=== PATIENT | male | born 1980 | race Caucasian/White ===

== ENCOUNTER 2021-03-09 14:54 | Emergency (ER) | payer BC ==
[~2021-03-09] VITALS: Ht 180.3 cm; Wt 97.7 kg
[2021-03-09 16:33] LABS: BASO # 0.1 10^3/uL (0.0-0.2); BASO % 0.9 % (0.0-1.0); EOS # 0.4 10^3/uL (0.0-0.5); EOS % 4.2 % (0.0-3.0); HEMATOCRIT 47.8 % (42.0-52.0); HEMOGLOBIN 16.6 g/dl (13.5-17.5); LYMPH # 2.7 10^3/uL (1.5-5.0); LYMPH % 29.1 % (24.0-44.0); MEAN CORPUSCULAR HEMOGLOBIN 30.9 pg (27.0-33.0); MEAN CORPUSCULAR HGB CONC 34.7 g/dl (32.0-36.5); MONO # 0.8 10^3/uL (0.0-0.8); MONO % 8.5 % (2.0-8.0); NEUTROPHILS # 5.2 10^3/uL (1.5-8.5); NEUTROPHILS % 56.9 % (36.0-66.0); PLATELET COUNT, AUTOMATED 284 10^3/uL (150-450); RED BLOOD COUNT 5.37 10^6/uL (4.30-6.10); WHITE BLOOD COUNT 9.2 10^3/uL (4.0-10.0)
[2021-03-09] MEDS ORDERED: GI COCKTAIL 50ML BTL(HYOSCYAMINE/MAALOX/LIDOCAINE VISCOUS)(1:3:1) PO ONE (16:45)
[2021-03-09 16:59] LABS: ALBUMIN 4.6 GM/DL (3.2-5.2); ALT/SGPT 42 U/L (12-78); BILIRUBIN,DIRECT 0.1 MG/DL (0.0-0.2); BILIRUBIN,TOTAL 0.5 MG/DL (0.2-1.0); BLOOD UREA NITROGEN 17 MG/DL (7-18); CALCIUM LEVEL 8.7 MG/DL (8.5-10.1); CARBON DIOXIDE LEVEL 26 MEQ/L (21-32); CHLORIDE LEVEL 108 MEQ/L (98-107); CREATININE FOR GFR 0.97 MG/DL (0.70-1.30); GLOMERULAR FILTRATION RATE > 60.0 (>60); GLUCOSE, FASTING 87 MG/DL (70-100); LIPASE 202 U/L (73-393); POTASSIUM SERUM 4.8 MEQ/L (3.5-5.1); SODIUM LEVEL 139 MEQ/L (136-145); TOTAL PROTEIN 7.9 GM/DL (6.4-8.2)
[2021-03-09] MEDS ORDERED: LISI10TA22 PO (17:27)
--- NOTE | 2021-03-09 17:27 | REP ---
INDICATION: abdominal pain. COMPARISON: None. TECHNIQUE: Unenhanced scans FINDINGS: The lower lungs are clear. The liver shows normal size and attenuation. No evidence of mass or biliary tract dilatation. Gallbladder is fluid filled without evidence of gallstones. Pancreas normal size and attenuation. No evidence of edema or mass. Spleen normal size and attenuation Aorta normal caliber. Adrenal glands not enlarged. Kidneys normal size configuration. No hydronephrosis, mass, cyst or calculus in either side. Large and small bowel show normal mucosal pattern without inflammatory change. Diverticuli noted the sigmoid colon. No evidence of diverticulitis. No mass, adenopathy or inflammatory change in the abdomen or pelvis. IMPRESSION: No acute process. <Electronically signed by Jean Tovar > 03/09/21 [id number]
[2021-03-09] MEDS ORDERED: PROT20TA11 PO (17:58)
[2021-03-09] MEDS ORDERED: CARA1TAB6 PO (17:59)
[2021-03-09 18:14] VITALS: BP 135/89
== END 2021-03-09 18:15 | disposition home or self-care (01) ==
LOC: M ED 14:54
DX: K21.9 Gastro-esophageal reflux disease without esophagitis (principal); K29.20 Alcoholic gastritis without bleeding; I10 Essential (primary) hypertension; F12.10 Cannabis abuse, uncomplicated; F10.20 Alcohol dependence, uncomplicated

== ENCOUNTER → 2025-02-16 | Outpatient (REF) | payer BC ==
[~2025-02-16] MED LIST: CARA1TAB6 PO; LISI10TA22 PO; PRED20TA PO; PROT20TA11 PO; TIZA10TA PO; VALS1TAB67 PO
== END ==
LOC: M LAB REF 17:18
PROVIDERS: ATTEND Otolaryngology
DX: J32.0 Chronic maxillary sinusitis (principal); J32.4 Chronic pansinusitis